=== PATIENT | female | born 1970 | race African-American/Black ===

== ENCOUNTER 2018-09-15 14:01 | Emergency (ER) | payer BC ==
[2018-09-15 14:47] LABS: Absolute Lymphocytes (CBC) 2.9 K/uL (0.7-4.9); Absolute Monocytes 0.5 K/uL (0.1-1.3); Absolute Neutrophil 5.1 K/uL (1.8-8.0); Eosinophils % 2.4 % (0-4.4); Hematocrit 33.5 % (36.0-45.0); Lymphocytes % 33.1 % (15.3-44.8); MCH 23.4 pg (27.0-35.0); MCV 72.6 fL (80-100); Monocytes % 5.6 % (3.3-12.3); RBC Red Blood Cell Count 4.62 M/uL (3.86-4.86)
[2018-09-15 15:04] LABS: ALT/SGPT 53 U/L (12-78); AST/SGOT 36 U/L (15-37); Albumin 3.8 g/dL (3.4-5.0); Alkaline Phosphatase 96 U/L (45-117); BUN Blood Urea Nitrogen 5 mg/dL (7-18); Bicarbonate 26 mmol/L (21-32); Bilirubin Direct < 0.1 mg/dL (0-0.2); Bilirubin Total 0.5 mg/dL (0.2-1.0); Glucose Level 139 mg/dL (74-106); Lipase 168 U/L (73-393); Potassium 3.8 mmol/L (3.5-5.1); Protein, Total 8.2 g/dL (6.4-8.2); Sodium Level 142 mmol/L (136-145)
[2018-09-15 15:34] LABS: Urine Blood NEGATIVE (NEG); Urine Glucose NEGATIVE (NEG); Urine Protein NEGATIVE (NEG); Urine Specific Gravity 1.025 (1.005-1.030)
[2018-09-15] MEDS ORDERED: NA CHLORIDE 0.9% 1,000 ML ONE (15:34)
--- NOTE | 2018-09-15 16:39 | RAD REPORT ---
EXAM DESCRIPTION: CTAbdomen Pelvis W Contrast - 09/15/2018 4:27 pm CLINICAL HISTORY: Abdominal pain. ABD PAIN COMPARISON: No comparisons TECHNIQUE: Biphasic CT imaging of the abdomen and pelvis was performed with 100 ml non-ionic IV cont rast. All CT scans are performed using dose optimization technique as appropriate and may include automated exposure control or mA/KV adjustment according to patient size. FINDINGS: The lung bases are clear. Diffuse fatty liver is present. Cholecystectomy clips are seen. Postsurgical changes are present of a gastric bypass. The spleen, pancreas, adrenal glands and kidneys are within normal limits. No bowel obstruction, free air, free fluid or abscess. The appendix is normal. No evidence of signi ficant lymphadenopathy. No suspicious bony findings. A fibroid is noted in the uterus. IMPRESSION: No acute intra-abdominal or pelvic finding. Fatty liver.
[2018-09-15] MEDS ORDERED: CEFTRIAXONE/SWI 1gm 1 GM/10 ML SYR ONE (16:50)
--- NOTE | 2018-09-15 16:51 | ER ---
Nurse's Notes [facility] Name: Rolanda Hickman Age: 48 yrs Sex: Female : 1970 Arrival Date: 09/15/2018 Time: 14:04 Bed 24 Private MD: CORINNA ANDRADE Diagnosis: Urinary tract infection, site not specified;Abdominal tenderness;Leiomyoma of uterus, unspecified Presentation: 09/15 14:10 Presenting complaint: Patient states: Intermittent RLQ pain x 1 week and it's just jl7 getting worse "I feel like it might be gas cause it's rolling and rolling but now it's happening all the time.". Transition of care: patient was not received from another setting of care. Onset of symptoms was September 08, 2018. Risk Assessment: Do you want to hurt yourself or someone else? Patient reports no desire to harm self or others. Initial Sepsis Screen: Does the patient meet any 2 criteria? No. Patient's initial sepsis screen is negative. Does the patient have a suspected source of infection? No. Patient's initial sepsis screen is negative. Care prior to arrival: None. 14:10 Method Of Arrival: Ambulatory [facility] 14:10 Acuity: MCKENNA 3 jl7 Triage Assessment: 14:12 General: Appears in no apparent distress. uncomfortable, Behavior is calm, cooperative, jl7 appropriate for age. Pain: Complains of pain in right lower quadrant Pain does not radiate. Pain currently is 8 out of 10 on a pain scale. Quality of pain is described as sharp, Pain began 1 week Is intermittent. GI: Patient currently denies diarrhea, nausea, vomiting. 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 - Social history:: Smoking status: Patient/guardian denies using tobacco. - Ebola Screening: : No symptoms or risks identified at this time. - Family history:: not pertinent. Screenin:45 Abuse screen: Denies threats or abuse. Denies injuries from another. Nutritional aj screening: No deficits noted. Tuberculosis screening: No symptoms or risk factors identified. Fall Risk None identified. Assessment: 15:00 General: Appears in no apparent distress. comfortable, Behavior is calm, cooperative, aj appropriate for age. Neuro: Level of Consciousness is awake, alert, obeys commands, Oriented to person, place, time, situation, Appropriate for age. Respiratory: Airway is patent Respiratory effort is even, unlabored, Respiratory pattern is regular, symmetrical. GI: Abdomen is non-distended, Bowel sounds present X 4 quads. Abd is soft and non tender X 4 quads. Reports lower abdominal pain. Derm: Skin is intact, is healthy with good turgor, Skin is pink, warm \\T\\ dry. normal. 16:44 Reassessment: Patient appears in no apparent distress at this time. No changes from aj previously documented assessment. Patient and/or family updated on plan of care and expected duration. Pain level reassessed. Patient is standing at bedside leaning against counter, using cell phone. Patient appears to be in NAD. 17:03 Reassessment: Patient appears in no apparent distress at this time. No changes from aj previously documented assessment. Patient and/or family updated on plan of care and expected duration. Pain level reassessed. Patient is alert, oriented x 3, equal unlabored respirations, skin warm/dry/pink. Vital Signs: 14:12 BP 133 / 82; Pulse 84; Resp 18; Temp 98.1; Pulse Ox 100% ; Weight 94.8 kg; Height 5 ft. jl7 7 in. (170.18 cm); Pain 8/10; 17:03 BP 110 / 97; Pulse 76; Resp 20; Pulse Ox 99% on R/A; aj 14:12 Body Mass Index 32.73 (94.80 kg, 170.18 cm) jl7 ED Course: 14:04 Patient arrived in ED. sb2 14:05 CORINNA ANDRADE is Private Physician. sb2 14:11 Triage completed. jl7 14:12 Arm band placed on right wrist. Patient placed in waiting room, Patient notified of jl7 wait time. 14:15 Zac Moffett MD is Attending Physician. [facility] 14:19 Arlen Davis, LUCA is Primary Nurse. aj 14:25 Inserted saline lock: 20 gauge in left antecubital area, using aseptic technique. Blood aj collected. By Veto Armijo. 14:30 Patient has correct armband on for positive identification. Placed in gown. Bed in low aj position. Call light in reach. Side rails up X 1. 16:[address] nj 16:21 CT completed. Patient tolerated procedure well. Patient moved back from [place]. josy 16:50 CORINNA ANDRADE is Referral Physician. wolfgang 16:50 Shivam Jang MD is Referral Physician. wolfgang 17:03 No provider procedures requiring assistance completed. aj 17:05 IV discontinued, intact, bleeding controlled, No redness/swelling at site. Pressure aj dressing applied. Administered Medications: 15:35 Drug: NS 0.9% 1000 ml Route: IV; Rate: 1 bolus; Site: left antecubital; aj 17:06 Follow up: Response: No adverse reaction; IV Status: Completed infusion; IV Intake: aj 1000ml 16:44 Drug: Rocephin - (cefTRIAXone) 1 grams Route: IVPB; Infused Over: 30 mins; Site: left aj antecubital; 17:05 Follow up: Response: No adverse reaction; IV Status: Completed infusion; IV Intake: 10mlaj Intake: 17:05 IV: 10ml; Total: 10ml. aj 17:06 IV: 1000ml; Total: 1010ml. aj Outcome: 16:50 Discharge ordered by . wolfgang 17:05 Discharged to home ambulatory. aj 17:05 Condition: good 17:05 Discharge instructions given to patient, Instructed on discharge instructions, follow up and referral plans. medication usage, Demonstrated understanding of instructions, follow-up care, medications, Prescriptions given X 2. 17:06 Patient left the ED. aj Signatures: Arlen Davis RN Zac Horner MD MD cha Jordan, Nathan nj Leal, Jahala, RN RN jl7 Molly Muñoz sb2
--- NOTE | 2018-09-15 16:51 | EDPHYS ---
Physician Documentation [facility] Name: Rolanda Hickman Age: 48 yrs Sex: Female : 1970 Arrival Date: 09/15/2018 Time: 14:04 Bed 24 Private MD: CORINNA ANDRADE ED Physician Zac Moffett HPI: 09/15 16:27 This 48 yrs old Black Female presents to ER via Ambulatory with complaints of Abdominal wolfgang Pain. 16:27 The patient presents with abdominal pain right lower quadrant. Onset: The wolfgang symptoms/episode began/occurred 5 day(s) ago. The symptoms do not radiate. Associated signs and symptoms: none. The symptoms are described as crampy, dull. Severity of pain: At its worst the pain was mild in the emergency department the pain is unchanged. The patient has not experienced similar symptoms in the past. 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 - Social history:: Smoking status: Patient/guardian denies using tobacco. - Ebola Screening: : No symptoms or risks identified at this time. - Family history:: not pertinent. ROS: 16:27 Constitutional: Negative for fever, chills, and weight loss, Eyes: Negative for injury, wolfgang pain, redness, and discharge, ENT: Negative for injury, pain, and discharge, Neck: Negative for injury, pain, and swelling, Cardiovascular: Negative for chest pain, palpitations, and edema, Respiratory: Negative for shortness of breath, cough, wheezing, and pleuritic chest pain, Back: Negative for injury and pain, : Negative for injury, bleeding, discharge, and swelling, MS/Extremity: Negative for injury and deformity, Skin: Negative for injury, rash, and discoloration, Neuro: Negative for headache, weakness, numbness, tingling, and seizure, Psych: Negative for depression, anxiety, suicide ideation, homicidal ideation, and hallucinations, Allergy/Immunology: Negative for hives, rash, and allergies, Endocrine: Negative for neck swelling, polydipsia, polyuria, polyphagia, and marked weight changes, Hematologic/Lymphatic: Negative for swollen nodes, abnormal bleeding, and unusual bruising. 16:27 Abdomen/GI: Positive for abdominal pain, abdominal cramps, of the right lower quadrant. Exam: 16:27 Constitutional: This is a well developed, well nourished patient who is awake, alert, wolfgang and in no acute distress. Head/Face: Normocephalic, atraumatic. Eyes: Pupils equal round and reactive to light, extra-ocular motions intact. Lids and lashes normal. Conjunctiva and sclera are non-icteric and not injected. Cornea within normal limits. Periorbital areas with no swelling, redness, or edema. ENT: Nares patent. No nasal discharge, no septal abnormalities noted. Tympanic membranes are normal and external auditory canals are clear. Oropharynx with no redness, swelling, or masses, exudates, or evidence of obstruction, uvula midline. Mucous membranes moist. Neck: Trachea midline, no thyromegaly or masses palpated, and no cervical lymphadenopathy. Supple, full range of motion without nuchal rigidity, or vertebral point tenderness. No Meningismus. Chest/axilla: Normal chest wall appearance and motion. Nontender with no deformity. No lesions are appreciated. Cardiovascular: Regular rate and rhythm with a normal S1 and S2. No gallops, murmurs, or rubs. Normal PMI, no JVD. No pulse deficits. Respiratory: Lungs have equal breath sounds bilaterally, clear to auscultation and percussion. No rales, rhonchi or wheezes noted. No increased work of breathing, no retractions or nasal flaring. Back: No spinal tenderness. No costovertebral tenderness. Full range of motion. Skin: Warm, dry with normal turgor. Normal color with no rashes, no lesions, and no evidence of cellulitis. MS/ Extremity: Pulses equal, no cyanosis. Neurovascular intact. Full, normal range of motion. Neuro: Awake and alert, GCS 15, oriented to person, place, time, and situation. Cranial nerves II-XII grossly intact. Motor strength 5/5 in all extremities. Sensory grossly intact. Cerebellar exam normal. Normal gait. 16:27 Abdomen/GI: Inspection: abdomen appears normal, Bowel sounds: normal, Palpation: mild abdominal tenderness, in the right lower quadrant. Vital Signs: 14:12 BP 133 / 82; Pulse 84; Resp 18; Temp 98.1; Pulse Ox 100% ; Weight 94.8 kg; Height 5 ft. jl7 7 in. (170.18 cm); Pain 8/10; 17:03 BP 110 / 97; Pulse 76; Resp 20; Pulse Ox 99% on R/A; aj 14:12 Body Mass Index 32.73 (94.80 kg, 170.18 cm) jl7 MDM: 14:15 Patient medically screened. [facility] 16:31 Data reviewed: vital signs, nurses notes, lab test result(s), EKG, radiologic studies, [facility] CT scan, plain films. 09/15 14:18 Order name: Basic Metabolic Panel [facility] 09/15 14:18 Order name: CBC with Diff [facility] 09/15 14:18 Order name: Creatinine for Radiology [facility] 09/15 14:18 Order name: Hepatic Function [facility] 09/15 14:18 Order name: Lipase [facility] 09/15 14:18 Order name: Urine Culture [facility] 09/15 14:49 Order name: CBC with Automated Diff; Complete Time: 16:01 [facility] 09/15 15:03 Order name: Creatinine (Radiology Only); Complete Time: 16:01 [facility] 09/15 15:04 Order name: Urine Dipstick--Ancillary (enter results) 09/15 15:04 Order name: Urine --Ancillary (enter results) 09/15 15:04 Order name: Basic Metabolic Panel; Complete Time: 16:01 [facility] 09/15 15:04 Order name: Liver (Hepatic) Function; Complete Time: 16:01 [facility] 09/15 15:05 Order name: Lipase; Complete Time: 16:01 [facility] 09/15 15:34 Order name: Urine --Ancillary; Complete Time: 16:01 [facility] 09/15 14:18 Order name: IV Saline Lock; Complete Time: 14:49 [facility] 09/15 14:18 Order name: Labs collected and sent; Complete Time: 14:49 [facility] 09/15 14:18 Order name: CT Abd/Pelvis - W/Contrast [facility] 09/15 14:18 Order name: Urine Dipstick-Ancillary (obtain specimen); Complete Time: 14:49 [facility] 09/15 15:34 Order name: Urine Dipstick-Ancillary; Complete Time: 16:01 [facility] 09/15 16:40 Order name: CT; Complete Time: 16:43 EDMS Administered Medications: 15:35 Drug: NS 0.9% 1000 ml Route: IV; Rate: 1 bolus; Site: left antecubital; aj 17:06 Follow up: Response: No adverse reaction; IV Status: Completed infusion; IV Intake: aj 1000ml 16:44 Drug: Rocephin - (cefTRIAXone) 1 grams Route: IVPB; Infused Over: 30 mins; Site: left aj antecubital; 17:05 Follow up: Response: No adverse reaction; IV Status: Completed infusion; IV Intake: 10mlaj Disposition: 09/15/18 16:50 Discharged to Home. Impression: Urinary tract infection, site not specified, Abdominal tenderness, Leiomyoma of uterus, unspecified. - Condition is Stable. - Discharge Instructions: Abdominal Pain, Adult, Uterine Fibroids, Urinary Tract Infection, Adult, Urinary Tract Infection, Adult, [id number]-[id number], Abdominal Pain, Adult, Koyl-ft-[id number], Uterine Fibroids, [id number]-[id number]. - Prescriptions for Bentyl 20 mg Oral Tablet - take 2 tablet by ORAL route every 6 hours As needed; 40 tablet. Cipro 500 mg Oral Tablet - take 1 tablet by ORAL route every 12 hours for 7 days; 14 tablet. - Medication Reconciliation Form, Thank You Letter, Antibiotic Education, Prescription Opioid Use form. - Follow up: CORINNA ANDRADE; When: 2 - 3 days; Reason: Recheck today's complaints, Continuance of care, Re-evaluation by your physician. Follow up: Shivam Jang; When: 2 - 3 days; Reason: Recheck today's complaints, Re-evaluation by your physician. - Problem is new. - Symptoms have improved. Signatures: Dispatcher [employer] EDGA Arlen Davis RN RN aj Anderson, Corey, MD MD cha Leal, Jahala, RN RN jl7 Corrections: (The following items were deleted from the chart) 17:06 16:50 09/15/2018 16:50 Discharged to Home. Impression: Urinary tract infection, site aj not specified; Abdominal tenderness; Leiomyoma of uterus, unspecified. Condition is Stable. Discharge Instructions: Abdominal Pain, Adult, Urinary Tract Infection, Adult, Urinary Tract Infection, Adult, [id number]-ar-[id number], Abdominal Pain, Adult, Ghvp-[id number], Uterine Fibroids, Uterine Fibroids, [id number]-eg-[id number]. Prescriptions for Bentyl 20 mg Oral Tablet - take 2 tablet by ORAL route every 6 hours As needed; 40 tablet, Cipro 500 mg Oral Tablet - take 1 tablet by ORAL route every 12 hours for 7 days; 14 tablet. and Forms are Medication Reconciliation Form, Thank You Letter, Antibiotic Education, Prescription Opioid Use. Follow up: CORINNA ANDRADE; When: 2 - 3 days; Reason: Recheck today's complaints, Continuance of care, Re-evaluation by your physician. Follow up: Shivam Jang; When: 2 - 3 days; Reason: Recheck today's complaints, Re-evaluation by your physician. Problem is new. Symptoms have improved. wolfgang
== END 2018-09-15 17:06 | disposition home or self-care (01) ==
LOC: ER 14:01
DX: N39.0 Urinary tract infection, site not specified (principal); D25.9 Leiomyoma of uterus, unspecified
CPT/HCPCS: 36415; 74177; 80048; 80076; 81003; 81025; 83690; 85025; 87086; 87088; J0696; J7030; Q9967

== ENCOUNTER 2018-10-21 18:21 | Emergency (ER) | payer BC ==
--- OUTSIDE RECORDS SUMMARY | 2018-10-21 18:23 | XMS REPORT ---
:1970 [facility] Address [address] [place] [address] Dr. Byrd. [address] [place] [id number] Care Team Providers Name Role Phone Unavailable Unavailable Unavailable Problems This patient has no known problems. Allergies, Adverse Reactions, Alerts This patient has no known allergies or adverse reactions. Medications This patient has no known medications.
[2018-10-21 20:32] LABS: Absolute Lymphocytes (CBC) 2.8 K/uL (0.7-4.9); Absolute Monocytes 0.7 K/uL (0.1-1.3); Basophils % 1.2 % (0-1.3); Eosinophils % 3.8 % (0-4.4); Hematocrit 32.2 % (36.0-45.0); Lymphocytes % 35.5 % (15.3-44.8); MCH 23.4 pg (27.0-35.0); MCV 72.6 fL (80-100); MPV 9.9 fL (7.6-11.3); Monocytes % 8.8 % (3.3-12.3); RBC Red Blood Cell Count 4.44 M/uL (3.86-4.86)
[2018-10-21 20:40] LABS: ALT/SGPT 41 U/L (12-78); AST/SGOT 25 U/L (15-37); Albumin 3.7 g/dL (3.4-5.0); Alkaline Phosphatase 94 U/L (45-117); BUN Blood Urea Nitrogen 7 mg/dL (7-18); Bicarbonate 27 mmol/L (21-32); Bilirubin Direct 0.1 mg/dL (0-0.2); Bilirubin Total 0.2 mg/dL (0.2-1.0); Glucose Level 76 mg/dL (74-106); Lipase 175 U/L (73-393); Potassium 3.6 mmol/L (3.5-5.1); Protein, Total 8.1 g/dL (6.4-8.2); Sodium Level 141 mmol/L (136-145)
[2018-10-21 20:48] LABS: Urine Blood NEGATIVE (NEG); Urine Glucose NEGATIVE (NEG); Urine Protein NEGATIVE (NEG); Urine Specific Gravity >1.030 (1.005-1.030)
[2018-10-21 21:33] LABS: Specific Gravity 1.025 (1.005-1.030)
[2018-10-21] MEDS ORDERED: ONDANSETRON 4 MG/2 ML VIAL ONE (21:36)
[2018-10-21] MEDS ORDERED: PANTOPRAZOLE 40 MG INJ ONE (21:36)
[2018-10-21] MEDS ORDERED: NA CHLORIDE 0.9% 1,000 ML ONE (21:36)
--- NOTE | 2018-10-21 21:57 | RAD REPORT ---
EXAM DESCRIPTION: CTAbdomen Pelvis W Contrast - 10/21/2018 9:45 pm CLINICAL HISTORY: Abdominal pain. iv contrast only;Abd pain COMPARISON: Abdomen Pelvis W Contrast dated 09/15/2018 TECHNIQUE: Biphasic CT imaging of the abdomen and pelvis was performed with 100 ml non-ionic IV cont rast. All CT scans are performed using dose optimization technique as appropriate and may include automated exposure control or mA/KV adjustment according to patient size. FINDINGS: 7 mm noncalcified pulmonary nodule is seen in the right lung base.No focal infiltrate in t he lung bases seen. Mild fatty liver is present. No focal lesion or intrahepatic biliary dilatation. Postsurgical changes are present of a gastric bypass and cholecystectomy. The spleen, pancreas, adrenal glands and kidney s are within normal limits. There is significant edematous appearance to the small bowel mesenteric. A prominent twisting of smal l bowel and vasculature is seen near the root of the small bowel mesenteric surrounding the superior mesenteric artery. This likely indicates a small bowel volvulus. Mild free fluid is seen in the pelvi s. The uterus appears enlarged and contains several fibroids. Normal appendix. No free intraperitonea l air or abscess. No pneumatosis coli seen. No suspicious bony findings. IMPRESSION: A small bowel volvulus is suspected with an edematous appearance to the small bowel mese nteric fat. Advise surgical consultation. Evidence of previous gastric bypass is noted.
--- NOTE | 2018-10-21 22:33 | EDPHYS ---
Physician Documentation [facility] Name: Rolanda Hickman Age: 48 yrs Sex: Female : 1970 Arrival Date: 10/21/2018 Time: 18:24 Bed 30 Private MD: CORINNA ANDRADE ED Physician Zac Moffett HPI: 10/21 20:57 This 48 yrs old Black Female presents to ER via Ambulatory with complaints of Abdominal kb Pain. 21:00 The patient presents with abdominal pain in the upper abdomen. Onset: The kb symptoms/episode began/occurred 3 day(s) ago. The symptoms do not radiate. Associated signs and symptoms: none. The symptoms are described as constant. Modifying factors: The symptoms are alleviated by nothing, the symptoms are aggravated by nothing. Severity of pain: At its worst the pain was moderate in the emergency department the pain is unchanged. The patient has not experienced similar symptoms in the past. The patient has not recently seen a physician. 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 - Social history:: Smoking status: Patient/guardian denies using tobacco, Patient/guardian denies using alcohol. - Ebola Screening: : Patient negative for fever greater than or equal to 101.5 degrees Fahrenheit, and additional compatible Ebola Virus Disease symptoms Patient denies exposure to infectious person Patient denies travel to an Ebola-affected area in the 21 days before illness onset. ROS: 21:00 Constitutional: Negative for fever, chills, and weight loss, ENT: Negative for injury, kb pain, and discharge, Neck: Negative for injury, pain, and swelling, Cardiovascular: Negative for chest pain, palpitations, and edema, Respiratory: Negative for shortness of breath, cough, wheezing, and pleuritic chest pain, MS/Extremity: Negative for injury and deformity, Skin: Negative for injury, rash, and discoloration, Neuro: Negative for headache, weakness, numbness, tingling, and seizure. 21:00 Abdomen/GI: Positive for abdominal pain, Negative for nausea, vomiting, and diarrhea, constipation, abdominal cramps, abdominal distension, anorexia. Exam: 21:02 Constitutional: This is a well developed, well nourished patient who is awake, alert, kb and in no acute distress. Head/Face: Normocephalic, atraumatic. ENT: Nares patent. No nasal discharge, no septal abnormalities noted. Tympanic membranes are normal and external auditory canals are clear. Oropharynx with no redness, swelling, or masses, exudates, or evidence of obstruction, uvula midline. Mucous membranes moist. Neck: Trachea midline, no thyromegaly or masses palpated, and no cervical lymphadenopathy. Supple, full range of motion without nuchal rigidity, or vertebral point tenderness. No Meningismus. Chest/axilla: Normal chest wall appearance and motion. Nontender with no deformity. No lesions are appreciated. Cardiovascular: Regular rate and rhythm with a normal S1 and S2. No gallops, murmurs, or rubs. Normal PMI, no JVD. No pulse deficits. Respiratory: Lungs have equal breath sounds bilaterally, clear to auscultation and percussion. No rales, rhonchi or wheezes noted. No increased work of breathing, no retractions or nasal flaring. Skin: Warm, dry with normal turgor. Normal color with no rashes, no lesions, and no evidence of cellulitis. MS/ Extremity: Pulses equal, no cyanosis. Neurovascular intact. Full, normal range of motion. Neuro: Awake and alert, GCS 15, oriented to person, place, time, and situation. Cranial nerves II-XII grossly intact. Motor strength 5/5 in all extremities. Sensory grossly intact. Cerebellar exam normal. Normal gait. 21:02 Abdomen/GI: Inspection: abdomen appears normal, Bowel sounds: normal, in all quadrants, Palpation: soft, in all quadrants, mild abdominal tenderness, in the right upper quadrant and left upper quadrant. Vital Signs: 18:43 BP 108 / 75; Pulse 82; Resp 18; Temp 99.9(O); Pulse Ox 99% on R/A; Weight 93.44 kg; hj Height 5 ft. 10 in. (177.80 cm); Pain 8/10; 19:55 BP 110 / 71; Pulse 65; Resp 18; Pulse Ox 100% on R/A; tl3 21:09 BP 100 / 59; Pulse 70; Resp 18; Pulse Ox 100% on R/A; tl3 22:23 BP 131 / 76; Pulse 70; Resp 18; Temp 98.1; Pulse Ox 100% ; tl3 18:43 Body Mass Index 29.56 (93.44 kg, 177.80 cm) hj MDM: 19:50 Patient medically screened. kb 21:02 Data reviewed: vital signs, nurses notes. Data interpreted: Pulse oximetry: on room air kb is 100 %. Interpretation: normal. 22:31 Counseling: I had a detailed discussion with the patient and/or guardian regarding: the kb historical points, exam findings, and any diagnostic results supporting the discharge/admit diagnosis, lab results, radiology results, the need to transfer to another facility, for higher level of care, [facility] does not immediately have the required specialist. ED course: PT had gastric bypass at [place] in May [address] Mo Cowart. Will transfer back to [place] for continuity of care. 10/21 19:50 Order name: Creatinine for Radiology; Complete Time: 20:54 kb 10/21 19:50 Order name: Basic Metabolic Panel; Complete Time: 20:54 kb 10/21 19:50 Order name: CBC with Diff; Complete Time: 20:33 kb 10/21 19:50 Order name: Hepatic Function; Complete Time: 20:54 kb 10/21 19:50 Order name: Lipase; Complete Time: 20:54 kb 10/21 20:28 Order name: Urine Dipstick--Ancillary (enter results); Complete Time: 20:54 ar5 10/21 19:50 Order name: IV Saline Lock; Complete Time: 20:08 kb 10/21 19:50 Order name: Labs collected and sent; Complete Time: 20:08 kb 10/21 20:55 Order name: CT Abd/Pelvis - W/Contrast; Complete Time: 22:00 kb 10/21 21:23 Order name: Urine Test (obtain specimen); Complete Time: 21:23 tl3 10/21 21:29 Order name: Test, Urine; Complete Time: 21:40 EDMS 10/21 22:21 Order name: Vital Signs; Complete Time: 23:01 kb Administered Medications: 21:53 Drug: ProTONIX 40 mg Route: IVP; Infused Over: 1 mins; Site: left antecubital; tl3 23:01 Follow up: Response: No adverse reaction tl3 21:53 Drug: Zofran 4 mg Route: IVP; Infused Over: 2 mins; Site: left antecubital; tl3 23:01 Follow up: Response: No adverse reaction tl3 21:54 Drug: NS 0.9% 1000 ml Route: IV; Rate: 1000 ml; Site: left antecubital; Delivery: tl3 Primary tubing; 23:01 Follow up: IV Status: Completed infusion; IV Intake: 1000ml tl3 Disposition: 22:10 Co-signature as Attending Physician, Zac Moffett MD I agree with the assessment and wolfgang plan of care. Disposition: 10/21/18 22:32 Transfer ordered to [facility]. Diagnosis is Small bowel volvulus. - Reason for transfer: Higher level of care. - Accepting physician is Dr Curry. - Condition is Stable. - Problem is new. - Symptoms are unchanged. Signatures: Dispatcher [employer] EDMS Luzma Jeronimo, CLINICAL PROGRAM CONSULTANT-C CLINICAL PROGRAM CONSULTANT-Ckb Zac Moffett MD MD cha Joaquin, Henry, RN RN Yumiko Brown RN RN tl3 Corrections: (The following items were deleted from the chart) 23:39 22:32 10/21/2018 22:32 Transfer ordered to [facility]. tl3 Diagnosis is Small bowel volvulus. Reason for transfer: Higher level of care. Accepting physician is Dr Curry. Condition is Stable. Problem is new. Symptoms are unchanged. kb
--- NOTE | 2018-10-21 22:33 | ER ---
Nurse's Notes [facility] Name: Rolanda Hickman Age: 48 yrs Sex: Female : 1970 Arrival Date: 10/21/2018 Time: 18:24 Bed 30 Private MD: CORINNA ANDRADE Diagnosis: Small bowel volvulus Presentation: 10/21 18:40 Presenting complaint: Patient states: i have a severe abd pain (mid and lateral abd) hj that started Friday, reports nausea; denies diarrhea and constipation hx of gastric bypass May 2018; denies fever and chills;. Transition of care: patient was not received from another setting of care. Onset of symptoms was October 21, 2018. Risk Assessment: Do you want to hurt yourself or someone else? Patient reports no desire to harm self or others. Initial Sepsis Screen: Does the patient meet any 2 criteria? No. Patient's initial sepsis screen is negative. Does the patient have a suspected source of infection? No. Patient's initial sepsis screen is negative. Care prior to arrival: None. 18:40 Method Of Arrival: Ambulatory 18:40 Acuity: MCKENNA 3 hj Triage Assessment: 18:42 General: Appears in no apparent distress. uncomfortable, Behavior is calm, cooperative, hj appropriate for age. Pain: Complains of pain in abdomen Pain currently is 8 out of 10 on a pain scale. GI: Reports lower abdominal pain, nausea. 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 - Social history:: Smoking status: Patient/guardian denies using tobacco, Patient/guardian denies using alcohol. - Ebola Screening: : Patient negative for fever greater than or equal to 101.5 degrees Fahrenheit, and additional compatible Ebola Virus Disease symptoms Patient denies exposure to infectious person Patient denies travel to an Ebola-affected area in the 21 days before illness onset. Screenin:43 Abuse screen: Denies threats or abuse. Denies injuries from another. Nutritional hj screening: No deficits noted. Tuberculosis screening: No symptoms or risk factors identified. Fall Risk None identified. Assessment: 18:43 GI: Bowel sounds present X 4 quads. hj 19:55 General: Appears uncomfortable, obese, well groomed, well developed, well nourished, tl3 Behavior is calm, cooperative, appropriate for age. Pain: Complains of pain in abdomen Pain currently is 8 out of 10 on a pain scale. Neuro: Level of Consciousness is awake, alert, obeys commands, Oriented to person, place, time, situation, Appropriate for age. Cardiovascular: Patient's skin is warm and dry. Respiratory: Airway is patent Respiratory effort is even, unlabored, Respiratory pattern is regular, symmetrical. : No signs and/or symptoms were reported regarding the genitourinary system. Urine is clear. EENT: No signs and/or symptoms were reported regarding the EENT system. Derm: No signs and/or symptoms reported regarding the dermatologic system. 22:56 Reassessment: Patient appears in no apparent distress at this time. No changes from tl3 previously documented assessment. Patient and/or family updated on plan of care and expected duration. Pain level reassessed. Patient is alert, oriented x 3, equal unlabored respirations, skin warm/dry/pink. called report to Simi SEGOVIA, transfer form filled out and signed by patient. 23:38 Reassessment: EMS here for transfer. tl3 Vital Signs: 18:43 BP 108 / 75; Pulse 82; Resp 18; Temp 99.9(O); Pulse Ox 99% on R/A; Weight 93.44 kg; hj Height 5 ft. 10 in. (177.80 cm); Pain 8/10; 19:55 BP 110 / 71; Pulse 65; Resp 18; Pulse Ox 100% on R/A; tl3 21:09 BP 100 / 59; Pulse 70; Resp 18; Pulse Ox 100% on R/A; tl3 22:23 BP 131 / 76; Pulse 70; Resp 18; Temp 98.1; Pulse Ox 100% ; tl3 18:43 Body Mass Index 29.56 (93.44 kg, 177.80 cm) ED Course: 18:24 Patient arrived in ED. rg4 18:24 CORINNA ANDRADE is Private Physician. rg4 18:42 Triage completed. hj 18:43 Arm band placed on left wrist. hj 18:45 Patient has correct armband on for positive identification. Placed in gown. Bed in low hj position. Call light in reach. Side rails up X 1. 19:42 Yumiko Brown RN is Primary Nurse. tl3 19:50 Luzma Jeronimo FNP-C is PHCP. kb 19:50 Zac Moffett MD is Attending Physician. kb 19:55 No provider procedures requiring assistance completed. tl3 20:09 Initial lab(s) drawn, by me, sent to lab. Urine collected: clean catch specimen. tl3 Inserted saline lock: 20 gauge in right antecubital area, using aseptic technique. Blood collected. 20:58 Radiology exam delayed due to test not completed at this time. vm2 21:09 IV discontinued, intact, bleeding controlled, No redness/swelling at site. Pressure tl3 dressing applied, pt wanted removed due to discomfort. 21:33 CT Abd/Pelvis - W/Contrast Sent. tl3 21:[address] tl3 21:34 Inserted saline lock: 20 gauge in left antecubital area, using aseptic technique. tl3 21:44 CT completed. Patient tolerated procedure well. Patient moved back from CT. vm2 21:45 CT Abd/Pelvis - W/Contrast In Process Unspecified. EDMS Administered Medications: 21:53 Drug: ProTONIX 40 mg Route: IVP; Infused Over: 1 mins; Site: left antecubital; tl3 23:01 Follow up: Response: No adverse reaction tl3 21:53 Drug: Zofran 4 mg Route: IVP; Infused Over: 2 mins; Site: left antecubital; tl3 23:01 Follow up: Response: No adverse reaction tl3 21:54 Drug: NS 0.9% 1000 ml Route: IV; Rate: 1000 ml; Site: left antecubital; Delivery: tl3 Primary tubing; 23:01 Follow up: IV Status: Completed infusion; IV Intake: 1000ml tl3 Intake: 23:01 IV: 1000ml; Total: 1000ml. tl3 Outcome: 22:32 ER care complete, transfer ordered by . kb 22:56 Transferred by ground EMS to [facility], Transfer form completed. tl3 22:56 Condition: stable 22:56 Instructed on the need for transfer. 23:39 Patient left the ED. tl3 Signatures: Dispatcher [employer] EDMS Luzma Jeronimo, VULNERABILITY RESEARCHER-C VULNERABILITY RESEARCHER-Ckb Issac Sultana, RN RN Sima Swartz 4 [facility] Yumiko Brown, RN RN tl3 Corrections: (The following items were deleted from the chart) 18:46 18:43 Pulse 82bpm; Resp 18bpm; Pulse Ox 99% RA; Temp 99.9F Oral; 93.44 kg; Height 5 ft. hj 10 in.; BMI: 29.5; Pain 8/10; hj
== END 2018-10-21 23:39 | disposition short-term general hospital (02) ==
LOC: ER 18:21
DX: K56.2 Volvulus (principal)
CPT/HCPCS: 36415; 74177; 80048; 80076; 81003; 81025; 83690; 85025; C9113; J2405; J7030; Q9967

== ENCOUNTER 2024-10-02 07:08 | Emergency (ER) | payer BC ==
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
[2024-10-02 09:52] VITALS: BP 126/79; O2SAT 100
== END 2024-10-02 08:44 | disposition home or self-care (01) ==
LOC: ER 07:08
DX: S16.1XXA Strain of muscle, fascia and tendon at neck level, initial encounter (principal); V49.40XA Driver injured in collision with unspecified motor vehicles in traffic accident, initial encounter
CPT/HCPCS: 70450; 72125; 99283